=== PATIENT | male | born 1955 ===

== ENCOUNTER 2018-04-21 14:03 | Emergency (ER) | payer BC, OTHER ==
[2018-04-21 14:11] VITALS: BP 136/96
--- NOTE | 2018-04-21 14:37 | ED ---
Back Pain - HPI Summary HPI Summary: Patient is a 62-year-old male presenting to the with a complaint of left rib pain after twisting the area a few days ago. History of 8 fractured ribs on the ipsilateral side with 2 nonhealing ribs from his most recent x-ray several years ago. He feels he may have reinjured the area and is concerned over a worsening fracture. He denies any SOB, however states he is breathing more shallowly. Denies any other pain or concerns at this time. Has been taking ibuprofen. Denies any cough. - History of Current Complaint Chief Complaint: UCGeneralIllness Stated Complaint: LEFT CHEST INJURY Time Seen by Provider: 04/21/18 14:14 Hx Obtained From: Patient Onset/Duration: Started Hours Ago Timing: Constant Back Pain Location: Is Discrete @ - left ribs throughout Pain Intensity: 7 Pain Scale Used: 0-10 Numeric Character: Aching Aggravating Symptom(s): Movement Alleviating Symptom(s): Rest, Position Associated Signs And Symptoms: Positive: Negative Related History: Similar Episode Dx As - previous rib fx - Risk Factors AAA Risk Factors: Negative TAD Risk Factors: Negative Cauda Equina Risk Factors: Negative Epidural Abscess Risk Factors: Negative - Allergies/Home Medications Allergies/Adverse Reactions: Allergies Allergy/AdvReac Type Severity Reaction Status Date / Time grass pollen Allergy hayfever Verified 04/21/18 14:11 rabbit dander Allergy Hives Verified 04/21/18 14:12 Home Medications: Home Medications Dutasteride (NF) [Avodart (NF)] 0.5 mg PO DAILY 04/21/18 [History Confirmed ] Silodosin(NF) [Rapaflo(NF)] 8 mg PO DAILY 04/21/18 [History Confirmed 04/21/18] PMH/Surg Hx/FS Hx/Imm Hx Previously Healthy: Yes Cardiovascular History: Denies: Hx Hypertension - Surgical History Surgery Procedure, Year, and Place: bilat knee replacements - Immunization History Hx Pertussis Vaccination: No Immunizations Up to Date: No Infectious Disease History: No Infectious Disease History: Denies: Traveled Outside the [place] in Last 30 Days - Family History Known Family History: Positive: Unknown - Social History Occupation: Employed Full-time Lives: With Family Alcohol Use: Weekly Hx Substance Use: No Substance Use Type: Reports: None Hx Tobacco Use: No Smoking Status (MU): Never Smoked Tobacco Review of Systems Constitutional: Negative Negative: Fever, Chills, Fatigue, Skin Diaphoresis Negative: Palpitations, Chest Pain Negative: Shortness Of Breath, Cough Genitourinary: Negative Positive: no symptoms reported, see HPI Positive: Arthralgia, Myalgia Skin: Negative Neurological: Negative Psychological: Normal All Other Systems Reviewed And Are Negative: Yes Physical Exam Triage Information Reviewed: Yes Vital Signs On Initial Exam: Initial Vitals Temp Pulse Resp BP Pulse Ox 97.5 F 76 15 136/96 99 04/21/18 14:08 04/21/18 14:08 04/21/18 14:08 04/21/18 14:08 04/21/18 14:08 Vital Signs Reviewed: Yes Appearance: Positive: Well-Appearing, Well-Nourished Skin: Positive: Warm, Skin Color Reflects Adequate Perfusion Head/Face: Positive: Normal Head/Face Inspection Eyes: Positive: EOMI, DESEAN, Conjunctiva Clear Respiratory/Lung Sounds: Positive: Clear to Auscultation, Breath Sounds Present Cardiovascular: Positive: Normal, RRR Musculoskeletal: Positive: Pain @ - left ribs Psychiatric: Positive: Normal AVPU Assessment: Alert Diagnostics - Vital Signs Vital Signs Temp Pulse Resp BP Pulse Ox 04/21/18 14:08 97.5 F 76 15 136/96 99 - Laboratory Lab Statement: Any lab studies that have been ordered have been reviewed, and results considered in the medical decision making process. Back Pain Course/Dx - Course Course Of Treatment: Patient is evaluated for left rib injury after twisting the area several days ago. History of 8 previous rib fractures. X-ray obtained which shows no additional new fractures, however multiple old healing fractures. No ecchymosis or signs of trauma to the area. Will be discharged home with pain medication and follow-up with primary. Spirometry given. - Diagnoses Provider Diagnoses: Rib fractures Discharge - Sign-Out/Discharge Documenting (check all that apply): Patient Departure - Discharge Plan Condition: Stable Disposition: HOME Prescriptions: Oxycodone HCl/Acetaminophen [Percocet 10-325 mg Tablet] 1 each PO TID #20 tablet MDD 3 Patient Education Materials: Rib Fracture (ED) Referrals: Zafar Farley MD [Primary Care Provider] - Additional Instructions: Ibuprofen 600mg three times daily Moist heat to the area For pain not well controlled with ibuprofen or at bedtime - use pain medications Do not drive with this medication Spirometer several times per day and try to remember to breathe deeply If symptoms persist, please follow up with your PCP - Billing Disposition and Condition Condition: STABLE Disposition: Home
--- NOTE | 2018-04-21 14:53 | RAD ---
Indication: Left rib pain. Comparison is made with previous exam dated October 30, 2005. 5 views of left RIBS and dual energy PA views of the chest demonstrate deformity of the left eighth and seventh and sixth ribs posterior laterally. These appear to be old healed fractures. No recent fractures are identified. There is also evidence of deformity of the left fourth, fifth and sixth rib posteriorly. 2 views of the chest demonstrates left base atelectasis with no pneumothorax. IMPRESSION: Deformity of the left fourth and fifth ribs and sixth ribs with healing. Additional deformity of the left 8776 rib. No recent fracture is identified. No pneumothorax is noted.
== END 2018-04-21 15:13 | disposition home or self-care (01) ==
LOC: UCEAST 14:03
DX: S22.42XA Multiple fractures of ribs, left side, initial encounter for closed fracture (principal); I10 Essential (primary) hypertension; Z91.048 Other nonmedicinal substance allergy status; X50.1XXA Overexertion from prolonged static or awkward postures, initial encounter
CPT/HCPCS: 99212; G0463